=== PATIENT | female | born 1995 | race African-American/Black ===

== ENCOUNTER → 2022-02-24 | Outpatient (CLI) | payer OTHER ==
[2022-02-24 13:53] LABS: HEMATOCRIT 40.3 % (36.0-47.0); MEAN CORPUSCULAR HEMOGLOBIN 29.4 pg (27.0-33.0); MEAN CORPUSCULAR HGB CONC 32.3 g/dl (32.0-36.5); MEAN CORPUSCULAR VOLUME 91.2 fl (80.0-96.0); PLATELET COUNT, AUTOMATED 248 10^3/uL (150-450); RED BLOOD COUNT 4.42 10^6/uL (4.00-5.40); WHITE BLOOD COUNT 9.5 10^3/uL (4.0-10.0)
== END ==
LOC: M PLALAB 10:12
PROVIDERS: ATTEND Obstetrics & Gynecology
DX: O34.211 Maternal care for low transverse scar from previous cesarean delivery (principal)

== ENCOUNTER → 2022-03-08 | Outpatient (CLI) | payer OTHER | LOC: M LAB 09:02 | PROVIDERS: ATTEND Obstetrics & Gynecology | DX: O99.810 Abnormal glucose complicating pregnancy (principal) ==

== ENCOUNTER → 2022-04-20 | Outpatient (REF) | payer OTHER | LOC: M PLALAB 15:16 | PROVIDERS: ATTEND Specialist | DX: Z36.85 Encounter for antenatal screening for Streptococcus B (principal) | CPT/HCPCS: 87081; 87186; G0463 ==

== ENCOUNTER → 2022-05-02 | Outpatient (CLI) | payer OTHER ==
[~2022-05-02] MED LIST: PRENTAB9 PO
== END ==
LOC: M LABSMTC 10:19
PROVIDERS: ATTEND Anesthesiology
DX: Z20.828 Contact with and (suspected) exposure to other viral communicable diseases (principal); Z11.59 Encounter for screening for other viral diseases

== ENCOUNTER 2022-05-05 05:20 | Inpatient (IN) | payer OTHER ==
[2022-05-05] VITALS (7 sets, daily range): BP systolic 104–136; BP diastolic 56–76
[~2022-05-05] VITALS: Ht 157.5 cm; Wt 104.3 kg
[2022-05-05] MEDS: LR 1,000 ML IV SCH ×5 (00:40→16:25)
[2022-05-05] MEDS ORDERED: LR 1,000 ML IV ONE (05:55)
[2022-05-05] MEDS ORDERED: BICITRA 30ML SOLN UDC PO ONE (05:55)
[2022-05-05] MEDS ORDERED: ceFAZolin SOD 2 GM in IV 1 EA IV ONE (05:55)
[2022-05-05 06:29] LABS: HEMATOCRIT 38.6 % (36.0-47.0); MEAN CORPUSCULAR HEMOGLOBIN 30.4 pg (27.0-33.0); MEAN CORPUSCULAR HGB CONC 33.7 g/dl (32.0-36.5); MEAN CORPUSCULAR VOLUME 90.4 fl (80.0-96.0); PLATELET COUNT, AUTOMATED 211 10^3/uL (150-450); RED BLOOD COUNT 4.27 10^6/uL (4.00-5.40); WHITE BLOOD COUNT 9.6 10^3/uL (4.0-10.0)
[2022-05-05] MEDS: SLF 3 ML SYR IV SCH ×3 (07:00→23:30)
[2022-05-05] MEDS ORDERED: METOCLOPRAMIDE INJ 10MG/2ML VIAL (J2765 PER 1) IV PRN (07:20)
[2022-05-05] MEDS ORDERED: ONDANSETRON 4MG 2ML VIAL IV PRN ×2 (07:20→12:00)
[2022-05-05] MEDS ORDERED: **NOTE PATIENT COMMENT** MISC XX SCH (07:20)
[2022-05-05] MEDS ORDERED: NALOXONE INJ 0.4MG/1ML VIAL (J2310 PER 1MG) IV PRN ×2 (07:20)
[2022-05-05] MEDS ORDERED: oxyCODONE 5MG TAB PO PRN (07:20)
[2022-05-05] MEDS ORDERED: diphenhydrAMINE 50MG/ML VIAL (J1200) IV PRN (07:20)
[2022-05-05] MEDS ORDERED: fentaNYL 100 MCG/2 ML INJECTION IV PRN (07:20)
[2022-05-05] MEDS ORDERED: MORPHINE PRES-FREE INJ 10 MG/10 ML VIAL As Ordered ONE (07:56)
[2022-05-05] MEDS ORDERED: OXYTOCIN INJ 10 UNITS/ML VIAL (J2590) As Ordered ONE ×3 (07:56→09:26)
[2022-05-05] MEDS ORDERED: ONDANSETRON 4MG 2ML VIAL As Ordered ONE (08:13)
[2022-05-05] MEDS ORDERED: GLYCOPYRROLATE INJ 0.2 MG/ML 2 ML VIAL As Ordered ONE (08:25)
[2022-05-05] MEDS ORDERED: ePHEDrine SULFATE 25 MG/5 ML(5MG/ML) SYRINGE As Ordered ONE (08:27)
[2022-05-05] MEDS ORDERED: PHENYLephrine 500MCG 5ML (100MCG/ML) SYRINGE As Ordered ONE ×3 (08:28→08:55)
[2022-05-05] MEDS ORDERED: MIDAZOLAM INJ 2MG/2ML VIAL (J2250 PER 1MG) As Ordered ONE (09:14)
[2022-05-05] MEDS ORDERED: TRANEXAMIC ACID 100 MG/ML 10ML VIAL As Ordered ONE (09:15)
[2022-05-05] MEDS ORDERED: KETAMINE HCL 200 MG/20 ML VIAL As Ordered ONE (09:15)
[2022-05-05 09:44] LABS: HEMATOCRIT 43.3 % (36.0-47.0); HEMOGLOBIN 13.3 g/dl (12.0-15.5); MEAN CORPUSCULAR HEMOGLOBIN 31.9 pg (27.0-33.0); MEAN CORPUSCULAR HGB CONC 30.7 g/dl (32.0-36.5); MEAN CORPUSCULAR VOLUME 103.8 fl (80.0-96.0); RED BLOOD COUNT 4.17 10^6/uL (4.00-5.40); WHITE BLOOD COUNT 7.5 10^3/uL (4.0-10.0)
[2022-05-05 09:57] LABS: INR 1.92; PROTHROMBIN TIME 22.4 SECONDS (12.7-14.5)
[2022-05-05 10:04] LABS: PLATELET COUNT, AUTOMATED 82 10^3/uL (150-450)
[2022-05-05] MEDS ORDERED: propofoL 200 MG/20 ML VIAL As Ordered ONE (10:09)
[2022-05-05] MEDS ORDERED: ACETAMINOPHEN 1000MG 100ML IV BTL (OFIRMEV) (J0131 PER 10MG) As Ordered ONE (10:31)
[2022-05-05] MEDS ORDERED: CARBOPROST TROMETHAMINE 250 MCG/ML AMP IM PRN (10:40)
[2022-05-05] MEDS ORDERED: METHYLERGONOVINE MALEATE 0.2 MG/ML VIAL (J2210) IM PRN (10:40)
[2022-05-05] MEDS ORDERED: OXYTOCIN DRIP 30 UNITS in IV 1 EA IV PRN ×4 (10:40)
[2022-05-05] MEDS ORDERED: TRANEXAMIC ACID INJection 1,000 MG in NS 100 ML IV PRN (10:40)
[2022-05-05] MEDS ORDERED: fentaNYL 100 MCG/2 ML INJECTION As Ordered ONE (10:50)
[2022-05-05] MEDS ORDERED: MORPHINE 4 MG/ML 1ML VIAL/SYRINGE IV PRN (12:00)
[2022-05-05] MEDS ORDERED: RHOGAM 300 MCG (1500 IU) INJ (J2790) IM SCH (12:00)
[2022-05-05] MEDS ORDERED: PERCOCET 5MG/325MG TAB PO PRN (12:00)
[2022-05-05 12:34] LABS: HEMATOCRIT 36.3 % (36.0-47.0); MEAN CORPUSCULAR HEMOGLOBIN 30.6 pg (27.0-33.0); MEAN CORPUSCULAR HGB CONC 33.1 g/dl (32.0-36.5); MEAN CORPUSCULAR VOLUME 92.6 fl (80.0-96.0); PLATELET COUNT, AUTOMATED 157 10^3/uL (150-450); RED BLOOD COUNT 3.92 10^6/uL (4.00-5.40); WHITE BLOOD COUNT 18.7 10^3/uL (4.0-10.0)
[2022-05-05] MEDS: KETOROLAC 30 MG/ML 1ML VIAL IV SCH ×2 (12:40→18:48)
[2022-05-05 12:47] LABS: INR 1.09; PARTIAL THROMBOPLASTIN TIME 30.2 SECONDS (25.9-37.0); PROTHROMBIN TIME 14.5 SECONDS (12.7-14.5)
[2022-05-05 13:17] LABS: ALT/SGPT 13 U/L (12-78); BILIRUBIN,TOTAL 0.7 MG/DL (0.2-1.0); BLOOD UREA NITROGEN 10 MG/DL (7-18); CALCIUM LEVEL 7.9 MG/DL (8.5-10.1); CARBON DIOXIDE LEVEL 24 MEQ/L (21-32); CHLORIDE LEVEL 106 MEQ/L (98-107); CREATININE FOR GFR 0.89 MG/DL (0.55-1.30); GLOMERULAR FILTRATION RATE > 60.0 (>60); GLUCOSE, FASTING 121 MG/DL (70-100); POTASSIUM SERUM 5.6 MEQ/L (3.5-5.1); SODIUM LEVEL 135 MEQ/L (136-145); TOTAL PROTEIN 4.6 GM/DL (6.4-8.2)
[2022-05-05] MEDS ORDERED: METOCLOPRAMIDE INJ 10MG/2ML VIAL (J2765 PER 1) IV ONE (14:00)
[2022-05-05] MEDS ORDERED: METHYLERGONOVINE MALEATE 0.2 MG/ML VIAL (J2210) ONE (14:43)
[2022-05-05] MEDS ORDERED: CARBOPROST TROMETHAMINE 250 MCG/ML AMP ONE (14:43)
[2022-05-05] MEDS: PERCOCET 5MG/325MG TAB PO PRN (15:37)
[2022-05-05] MEDS: ceFAZolin SOD 2 GM in IV 1 EA IV SCH ×2 (16:26→23:49)
[2022-05-05] MEDS ORDERED: HOME MED LIST COMPLETE! XX SCH (18:05)
[2022-05-05] MEDS ORDERED: PRENTAB9 PO (18:05)
[2022-05-05] MEDS: DOCUSATE SODIUM 100MG CAPSULE PO SCH (21:05)
[2022-05-05] MEDS: SIMETHICONE 80MG CHEW TAB PO PRN (21:06)
[2022-05-06] VITALS (17 sets, daily range): BP systolic 110–140; BP diastolic 55–82
[2022-05-06] MEDS: KETOROLAC 30 MG/ML 1ML VIAL IV SCH ×2 (00:50→06:31)
[2022-05-06] MEDS: SIMETHICONE 80MG CHEW TAB PO PRN ×2 (06:31→20:12)
[2022-05-06 07:02] LABS: MEAN CORPUSCULAR HEMOGLOBIN 31.5 pg (27.0-33.0); MEAN CORPUSCULAR HGB CONC 34.8 g/dl (32.0-36.5); MEAN CORPUSCULAR VOLUME 90.5 fl (80.0-96.0); PLATELET COUNT, AUTOMATED 132 10^3/uL (150-450); RED BLOOD COUNT 2.32 10^6/uL (4.00-5.40); WHITE BLOOD COUNT 15.1 10^3/uL (4.0-10.0)
[2022-05-06 07:06] LABS: HEMOGLOBIN 7.3 g/dl (12.0-15.5)
[2022-05-06] MEDS: PRENATAL VITAMINS CHEWABLE TABLET PO SCH (08:40)
[2022-05-06] MEDS: ceFAZolin SOD 2 GM in IV 1 EA IV SCH (08:40)
[2022-05-06] MEDS: DOCUSATE SODIUM 100MG CAPSULE PO SCH ×2 (08:40→20:12)
[2022-05-06] MEDS: LR 1,000 ML IV SCH ×3 (08:41→20:00)
[2022-05-06] MEDS ORDERED: PERCOCET PO (09:03)
[2022-05-06] MEDS ORDERED: IBUP80TA PO (09:03)
[2022-05-06] MEDS ORDERED: COLA100C5 PO (09:03)
[2022-05-06] MEDS: PERCOCET 5MG/325MG TAB PO PRN ×2 (12:45→20:16)
[2022-05-06] MEDS: IBUPROFEN 800 MG TAB PO SCH ×2 (15:24→22:54)
[2022-05-07] MEDS: LR 1,000 ML IV SCH (04:00)
[2022-05-07 05:42] VITALS: BP 146/83
[2022-05-07] MEDS: IBUPROFEN 800 MG TAB PO SCH ×3 (07:40→23:20)
[2022-05-07 07:58] LABS: HEMATOCRIT 28.2 % (36.0-47.0); MEAN CORPUSCULAR HEMOGLOBIN 30.5 pg (27.0-33.0); MEAN CORPUSCULAR HGB CONC 34.4 g/dl (32.0-36.5); MEAN CORPUSCULAR VOLUME 88.7 fl (80.0-96.0); PLATELET COUNT, AUTOMATED 134 10^3/uL (150-450); RED BLOOD COUNT 3.18 10^6/uL (4.00-5.40)
[2022-05-07 08:03] LABS: HEMOGLOBIN 9.7 g/dl (12.0-15.5)
[2022-05-07] MEDS: PRENATAL VITAMINS CHEWABLE TABLET PO SCH (08:23)
[2022-05-07] MEDS: SIMETHICONE 80MG CHEW TAB PO PRN (08:23)
[2022-05-07] MEDS: DOCUSATE SODIUM 100MG CAPSULE PO SCH ×2 (08:23→20:23)
[2022-05-07] MEDS ORDERED: MOM 30ML SUSPENSION UDC PO PRN (08:50)
[2022-05-07] MEDS ORDERED: MEASLES,MUMPS,RUBELLA VACCINE INJ (MMR-II) (90707) SC.IMMUN ONE (09:00)
[2022-05-07 10:00] VITALS: BP 138/61
[2022-05-07 14:00] VITALS: BP 126/81
[2022-05-07] MEDS: PERCOCET 5MG/325MG TAB PO PRN (16:12)
[2022-05-07 22:00] VITALS: BP 126/81
[2022-05-08 02:00] VITALS: BP 134/88
[2022-05-08 06:00] VITALS: BP 117/64
[2022-05-08] MEDS: IBUPROFEN 800 MG TAB PO SCH ×3 (06:20→23:52)
[2022-05-08] MEDS: DOCUSATE SODIUM 100MG CAPSULE PO SCH ×2 (08:59→21:00)
[2022-05-08] MEDS: PRENATAL VITAMINS CHEWABLE TABLET PO SCH (08:59)
[2022-05-08 10:00] VITALS: BP 130/89
[2022-05-08 14:00] VITALS: BP_SYST 117; BP_SYST 138; BP_DIAS 58; BP_DIAS 74
[2022-05-08] MEDS: PERCOCET 5MG/325MG TAB PO PRN (14:26)
[2022-05-08] MEDS ORDERED: TAMSULOSIN 0.4 MG CAP PO ONE (15:25)
[2022-05-08 18:00] VITALS: BP 124/72
[2022-05-08] MEDS: SIMETHICONE 80MG CHEW TAB PO PRN (21:29)
[2022-05-09] MEDS: PERCOCET 5MG/325MG TAB PO PRN ×2 (05:36→10:48)
[2022-05-09 06:00] VITALS: BP 130/79
[2022-05-09] MEDS: IBUPROFEN 800 MG TAB PO SCH (07:00)
[2022-05-09] MEDS: DOCUSATE SODIUM 100MG CAPSULE PO SCH (07:31)
[2022-05-09] MEDS: PRENATAL VITAMINS CHEWABLE TABLET PO SCH (07:31)
[2022-05-09] MEDS ORDERED: MACR100C43 PO (10:44)
== END 2022-05-09 12:35 | disposition home or self-care (01) | DRG 784 ==
LOC: M LDI 05:20 → EDUNIT# 09:30 → M OBS 13:22
PROVIDERS: ADMIT Obstetrics & Gynecology; ATTEND Obstetrics & Gynecology
PROC: 0UB70ZZ Excision of Bilateral Fallopian Tubes, Open Approach (ICD-10-PCS; 2022-05-05)
PROC: 0UQC0ZZ Repair Cervix, Open Approach (ICD-10-PCS; 2022-05-05)
PROC: 30233N1 Transfusion of Nonautologous Red Blood Cells into Peripheral Vein, Percutaneous Approach (ICD-10-PCS; 2022-05-05)
PROC: 30233K1 Transfusion of Nonautologous Frozen Plasma into Peripheral Vein, Percutaneous Approach (ICD-10-PCS; 2022-05-05)
PROC: 10D00Z1 Extraction of Products of Conception, Low, Open Approach (ICD-10-PCS; principal; 2022-05-05 07:30)
DX: O34.211 Maternal care for low transverse scar from previous cesarean delivery (principal); O72.1 Other immediate postpartum hemorrhage; Z37.0 Single live birth; Z3A.39 39 weeks gestation of pregnancy; Z30.2 Encounter for sterilization; O90.0 Disruption of cesarean delivery wound; R33.9 Retention of urine, unspecified

== ENCOUNTER 2022-05-13 17:58 | Outpatient (CLI) | payer OTHER ==
[~2022-05-13] VITALS: Ht 154.9 cm; Wt 97.0 kg
[~2022-05-13 17:58] MED LIST changes: +COLA100C5 PO; +IBUP80TA PO; +MACR100C43 PO; +PERCOCET PO
[2022-05-13 18:44] VITALS: BP 128/82
[2022-05-13 18:59] LABS: APPEARANCE, URINE MANUAL CLOUDY (CLEAR); COLOR, URINE MANUAL YELLOW (YELLOW)
[2022-05-13 19:00] LABS: GLUCOSE, URINE (UA) MANUAL 1+(100 MG/DL) mg/dL (NEGATIVE); PROTEIN, URINE MANUAL 1+ mg/dL (NEGATIVE)
[2022-05-13 19:01] LABS: BILIRUBIN, URINE MANUAL NEGATIVE (NEGATIVE); BLOOD URINE MANUAL POSITIVE (NEGATIVE); KETONE, URINE MANUAL NEGATIVE (NEGATIVE); LEUKOCYTE ESTERASE, URINE MAN POSITIVE (NEGATIVE); NITRITE, URINE MANUAL NEGATIVE (NEGATIVE); UROBILINOGEN, URINE MANUAL NORMAL (NORMAL)
[2022-05-13 19:09] LABS: BACTERIA, URINE NONE SEEN; HYALINE CAST, URINE NONE SEEN /lpf (0-1); RBC, URINE NONE SEEN /hpf (0-3); SQUAMOUS EPITHELIAL CELL URINE SMALL AMOUNT /hpf (SMALL AMT); WBC, URINE TNTC /hpf (0-3)
[2022-05-13] MEDS ORDERED: FLOM0.4C39 PO (19:39)
[2022-05-13] MEDS ORDERED: MACR100C43 PO (19:39)
== END 2022-05-13 19:35 | disposition home or self-care (01) ==
LOC: M LDO 17:58
PROVIDERS: ATTEND Specialist
DX: R10.84 Generalized abdominal pain (principal); R33.9 Retention of urine, unspecified

== ENCOUNTER → 2022-05-18 | Outpatient (REF) | payer OTHER ==
[~2022-05-18] MED LIST changes: +FLOM0.4C39 PO
== END ==
LOC: M SFHCWAGY 15:20
PROVIDERS: ATTEND Obstetrics & Gynecology
DX: R33.9 Retention of urine, unspecified (principal)